=== PATIENT | male | born 1990 | race Caucasian/White ===

== ENCOUNTER 2017-01-02 09:20 | Emergency (ER) | payer MEDICAID ==
[~2017-01-02] VITALS: Ht 190.5 cm; Wt 20.0 kg
[~2017-01-02 09:20] MED LIST: CELEXA20 MG PO; LISINOPRIL10 MG PO; NORCO 325 MG-51 TAB PO; PANTOPRAZOLE SO40 M1 PO; PREDNISONE 20MG20 MG PO; TOPIRAMATE100 MG PO; TORADOL10 MG PO; VENLAFAXINE HYD75 M1 PO; VENTOLIN H0.09 MG/Ac IH; ZITHROMAX Z PA250 MG PO
--- OUTSIDE RECORDS SUMMARY | 2017-01-02 09:55 | External Medical Summary Rpt | CCD ---
Author Author [employer] Organization [employer] Address Unknown Phone Unavailable Purpose Continuity of Care Document - through 2016
--- OUTSIDE RECORDS SUMMARY | 2017-01-02 09:55 | External Medical Summary Rpt | CCD ---
Author Author , CANDE CASTELLON Address Unknown Phone [email or web address] Purpose Continuity of Care Document - through 2016 Problems Code Diagnosis DOS Provider Status R09.1 PLEURISY R10.9 UNSPECIFIED ABDOMINAL PAIN
--- OUTSIDE RECORDS SUMMARY | 2017-01-02 09:55 | External Medical Summary Rpt | CCD ---
Author Author , CANDE CASTELLON Address Unknown Phone [email or web address] Purpose Continuity of Care Document - through 2016 Problems Code Diagnosis DOS Provider Status R09.1 PLEURISY R10.9 UNSPECIFIED ABDOMINAL PAIN
--- NOTE | 2017-01-02 09:56 | Emergency Room Report ---
See Addendum History of Present Illness Time Seen by MD Leigh Presenting Problem in Triage Pt arrived:Walked Presenting Problem:CONGESTION IN HEAD AND CHEST WITH DIARRHEA, AND FEVEER SINCE YESTERDAY Onset of symptoms date/time:01/01/17/ or onset unknown for:MEDICAL HX UNKNOWN Treatment Prior to Arrival: [employer] Provided by:SELF Sepsis Risk Assessment: Temp: 97.9 B/P: 148/86 MAP: 106 Pulse: 108 Resp: 20 Recent fever? N Clinical Suspician of Infection? Y Mental Status: 1 - Regular (Normal Baseline) Sepsis Risk: Have you (or family members/close friends) recently traveled outside the [place]? N If Yes, where/when: Have you had exposure to infectious disease within the past month? N TB? Other? Specify: Loose stools, congestion, fever for last three days; fever broke today. Not vomiting. Taking PO well. No earache or sore throat. Dry cough. Did not get flu shot this year. No abdominal pain. ALLERGIES Coded Allergies: acetaminophen (From DARVOCET-N) (12/15/15) propoxyphene (From DARVOCET-N) (12/15/15) Home Medications Reported Medications Lisinopril 10 MG PO DAILY #30 CITALOPRAM HYDROBROMIDE (Citalopram HBr) 20 MG PO DAILY History Medical History General CAD? No Angina: No KS: No Hypertension? Yes Hyperlipidemia? No CHF? No DVT? No PE? No COPD? No Asthma? No Anemia? No GERD? Yes Gastric ulcers? No GI Bleed? No Hernia? No Thyroid Problems? No Hypothyroidism? No CVA? No Seizures? No Diabetes? No Renal Insuffiency? No End Stage Renal Disease? No UTI? No Stones? No BPH? No GB Disease: Yes Nephritic Syndrome? No Asplenia? No Hepatitis? No Sickle Cell Disease? No Arthritis? No Migraines? No Cataracts? No Glaucoma? No MRSA? No HIV? No TB? No Anxiety? Yes Depression? No Cancer? No More? 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 Gastrointestinal diarrhea Musculoskeletal denies no symptoms reported Physical Exam Vital Signs Vital Signs Date Time Temp Pulse Resp B/P Pulse O2 O2 Flow FiO2 Ox Delivery Rate 01/02 1007 97.9 01/02 925 97.9 108 20 148/86 95 General Appearance normal appearance, WD/WN, no apparent distress, obese Eye Exam - bilateral eye normal exam, bilateral eye PERRL, bilateral eye EOMI Ear, Nose, Throat hearing grossly normal, normal ENT inspection, normal pharynx Neck normal inspection, non-tender, supple, full range of motion Respiratory Status Yes: trachea midline, chest symmetrical, non tender chest, non productive cough. No: respiratory distress, tender on palpation, use of accessory muscles, pain on inspiration, pain on expiration, productive cough. Lung Sounds bilateral: normal breath sounds, lungs clear. Cardiovascular normal exam, regular rate/rhythm, no peripheral edema, no gallop, no JVD, no murmur, no rub, normal peripheral pulses Gastrointestinal normal bowel sounds, normal exam, non tender, soft, no organomegaly (obese) Strength 5 Upper Ext (L), 5 Upper Ext (R), 5 Lower Ext (L), 5 Lower Ext (R) Neurologic alert, normal exam, no motor/sensory deficits, oriented x 3 ( ambulatory, clear speech) Glascow Coma Scale Glascow Coma Scale Response Value EYE response: 4 Spontaneously 4 MOTOR response: 6 OBEYS 6 VERBAL response: 5 Oriented & Converses 5 Total 15 Skin intact, normal color, warm/dry (good turgor) Medical Decision Making LABS/Meds/Orders Pt receiving controlled substance in ED? No Results/Orders Laboratory Tests 01/02/17 0950: Influenza Type A Ag NOT DETECTED, Influenza Type B Ag NOT DETECTED Orders Procedure Date/time Status INFLUENZA A&B ANTIGENS 01/02 0951 Complete Departure Departure Time of Disposition 1016 Disposition DC Home or Self Care(routine) Clinical Impression Primary Impression: Nasal congestion Secondary Impressions: Diarrhea Qualifiers: Diarrhea type: unspecified type Qualified Code: R19.7 - Diarrhea, unspecified Viral syndrome Condition STABLE Patient Instructions Diarrhea Additional Instructions Push fluids, Tylenol as needed for fever, see MD of choice on list provided next week for recheck. Flu swab negative today. Discharge Counseling Counseled pt/family regarding diagnosis, test results, medications/RX, home care, follow up needs ED Critical Care Critical Care No at 1010
--- OUTSIDE RECORDS SUMMARY | 2017-01-02 09:56 | External Medical Summary Rpt | CCD ---
Demographics Preferred Language Georgian Marital Status Unknown Hinduism Affiliation Unknown Race Unknown Ethnic Group Unknown Author Author , [facility] Organization [facility] Address Unknown Phone Immunization Unable to retrieve immunization data due to connection failure with Immunization Registry. Please try again later.
--- OUTSIDE RECORDS SUMMARY | 2017-01-02 09:56 | External Medical Summary Rpt ---
Author Author CANDE Orozco, [employer] Organization [employer] Address Unknown Phone Unavailable
--- OUTSIDE RECORDS SUMMARY | 2017-01-02 09:56 | External Medical Summary Rpt | CCD ---
Demographics Preferred Language Telugu Marital Status Unknown Alevism Affiliation Unknown Race Unknown Ethnic Group Unknown Author Author , [facility] Organization [facility] Address Unknown Phone Immunization Unable to retrieve immunization data due to connection failure with Immunization Registry. Please try again later.
[2017-01-02 10:19] VITALS: BP 121/71
== END 2017-01-02 10:39 | disposition home or self-care (01) ==
LOC: ER 09:20
DX: A08.4 Viral intestinal infection, unspecified (principal); R19.7 Diarrhea, unspecified; R09.81 Nasal congestion